=== PATIENT | female | born 1945 | race Caucasian/White ===

== ENCOUNTER 2025-05-04 11:19 | Emergency (ER) | payer MEDICARE, MEDICAID ==
[~2025-05-04] VITALS: Ht 167.6 cm; Wt 82.3 kg
[2025-05-04] MEDS: ACETAMINOPHEN 325 MG TAB PO ONE (12:01)
[2025-05-04 13:22] VITALS: BP 133/93; TEMP 98; O2SAT 99
== END 2025-05-04 13:23 | disposition home or self-care (01) ==
LOC: EDBD 11:19 → M ED 11:19
DX: S80.01XA Contusion of right knee, initial encounter (principal); S42.291A Other displaced fracture of upper end of right humerus, initial encounter for closed fracture; W01.198A Fall on same level from slipping, tripping and stumbling with subsequent striking against other object, initial encounter; M17.11 Unilateral primary osteoarthritis, right knee; Y92.410 Unspecified street and highway as the place of occurrence of the external cause; Y93.89 Activity, other specified; Y99.9 Unspecified external cause status

== ENCOUNTER 2025-05-06 21:31 | Inpatient (IN) | payer MEDICARE, MEDICAID ==
[2025-05-07 00:18] LABS: BASO # 0.1 10^3/uL (0.0-0.2); BASO % 0.3 % (0.0-1.0); EOS # 0.0 10^3/uL (0.0-0.5); EOS % 0.0 % (0.0-3.0); LYMPH # 1.1 10^3/uL (1.5-5.0); LYMPH % 6.6 % (24.0-44.0); MONO # 1.4 10^3/uL (0.0-0.8); MONO % 8.4 % (2.0-8.0); NEUTROPHILS # 13.6 10^3/uL (1.5-8.5); NEUTROPHILS % 84.2 % (36.0-66.0); PLATELET COUNT, AUTOMATED 184 10^3/uL (150-450)
[2025-05-07 00:40] LABS: ALT/SGPT 29.0 U/L (7.0-40); AST/SGOT 71.0 U/L (<34); CALCIUM LEVEL 9.7 MG/DL (8.3-10.6); CARBON DIOXIDE LEVEL 20.0 MMOL/L (20-31); CHLORIDE LEVEL 107.0 MMOL/L (98-107); CREATININE FOR GFR 0.82 MG/DL (0.55-1.30); GLOMERULAR FILTRATION RATE 73.2 (>39); POTASSIUM SERUM 5.2 MMOL/L (3.5-5.1); SODIUM LEVEL 144.0 MMOL/L (136-145)
[2025-05-07 00:42] LABS: FREE T4 1.37 NG/DL (0.89-1.76)
[2025-05-07 00:45] LABS: CPK CREATINE PHOSPHOKINASE 1277.0 U/L (34-145)
[2025-05-07] MEDS: METOPROLOL 5 MG/5 ML VIAL IV SCH (00:52)
[2025-05-07 01:35] LABS: CK-MB VALUE MASS 17.7 NG/ML (<3.6)
[2025-05-07 01:37] LABS: CPK CREATINE PHOSPHOKINASE 1242.0 U/L (34-145); MB/CK RELATIVE INDEX 1.42 (< OR =4)
[2025-05-07] MEDS ORDERED: NS (Normal Saline) 0.9% 1,000 ML IV ONE (02:05)
[2025-05-07 02:44] LABS: VENOUS BASE EXCESS -1.9 (-2.0-2.0); VENOUS HCO3 20.6 MMOL/L (23.0-27.0); VENOUS O2 SATURATION 98.9 % (60.0-80.0); VENOUS PARTIAL PRESSURE CO2 29.7 mmHg (38.0-50.0); VENOUS PARTIAL PRESSURE O2 133.8 mmHg (30.0-50.0); VENOUS PH 7.458 UNITS (7.330-7.430); VENOUS STANDARD HCO3 22.9 MMOL/L; VENOUS TOTAL CO2 21.5 MMOL/L (24.0-28.0)
[2025-05-07] MEDS ORDERED: ISOVUE-370 76% 100 ML VIAL As Ordered ONE (03:03)
[2025-05-07] MEDS: NS (Normal Saline) 0.9% 1,000 ML IV ONE (03:35)
[2025-05-07] MEDS: ALBUTEROL SULFATE 2.5 MG/0.5 ML INH CONCENTRATE NEB SOLN NEB ONE ×2 (03:50→03:54)
[2025-05-07 04:17] LABS: ABG BASE EXCESS -1.7 (-2.0-2.0); ABG HCO3 22.2 MMOL/L (22.0-26.0); ABG O2 SATURATION 91.6 % (95.0-99.0); ABG PARTIAL PRESSURE CO2 35.2 mmHg (35.0-45.0); ABG PARTIAL PRESSURE O2 60.0 mmHg (75.0-100.0); ABG STANDARD HCO3 22.9 MMOL/L. (22.0-26.0); ABG TOTAL CO2 23.2 MMOL/L (23.0-31.0); ABG pH (ARTERIAL) 7.417 UNITS (7.350-7.450)
[2025-05-07] MEDS ORDERED: GLUCAGON INJ 1 MG VIAL SC PRN ×2 (08:30→19:10)
[2025-05-07] MEDS ORDERED: DEXTROSE 50% 50 ML SYRINGE IV PRN ×2 (08:30→19:10)
[2025-05-07] MEDS ORDERED: GLUCOSE 4 GM CHEW PO PRN ×2 (08:30→19:10)
[2025-05-07 08:54] LABS: BASO # 0.0 10^3/uL (0.0-0.2); BASO % 0.2 % (0.0-1.0); EOS # 0.0 10^3/uL (0.0-0.5); EOS % 0.0 % (0.0-3.0); LYMPH # 1.1 10^3/uL (1.5-5.0); LYMPH % 6.8 % (24.0-44.0); MONO # 1.0 10^3/uL (0.0-0.8); MONO % 6.4 % (2.0-8.0); NEUTROPHILS # 13.6 10^3/uL (1.5-8.5); NEUTROPHILS % 86.0 % (36.0-66.0); PLATELET COUNT, AUTOMATED 175 10^3/uL (150-450)
[2025-05-07 08:58] LABS: ERYTHROCYTE SEDIMENTATION RATE 8 mm/hr (0-30)
[2025-05-07] MEDS: LR 1,000 ML IV ONE ×2 (09:03→10:22)
[2025-05-07] MEDS: CEFEPIME HCL 2 GM in DEXTROSE 5% (D5W) ADV/MINI-BAG 50 ML IV ONE (09:03)
[2025-05-07] MEDS ORDERED: IPRATROPIUM 0.5 MG/ALBUTEROL 2.5 MG INH SOL UD 3 ML NEB PRN (09:10)
[2025-05-07 09:18] LABS: CK-MB VALUE MASS 13.3 NG/ML (<3.6)
[2025-05-07 09:19] LABS: C REACTIVE PROTEIN QUANTITATIV 8.39 MG/DL (<1.0); CPK CREATINE PHOSPHOKINASE 835.0 U/L (34-145); MB/CK RELATIVE INDEX 1.59 (< OR =4)
[2025-05-07 09:23] LABS: PROLACTIN 5.57 NG/ML
[2025-05-07 09:24] LABS: ALT/SGPT 29.0 U/L (7.0-40); AST/SGOT 55.0 U/L (<34); CALCIUM LEVEL 8.8 MG/DL (8.3-10.6); CARBON DIOXIDE LEVEL 25.0 MMOL/L (20-31); CHLORIDE LEVEL 110.0 MMOL/L (98-107); CHOLESTEROL LEVEL 208.0 MG/DL (<200); CHOLESTEROL RISK RATIO 4.48 (<5); CREATININE FOR GFR 0.81 MG/DL (0.55-1.30); GLOMERULAR FILTRATION RATE 74.3 (>39); LDL CHOLESTEROL 129.4 MG/DL (<100); NON-HDL-C 161.6 MG/DL; POTASSIUM SERUM 4.6 MMOL/L (3.5-5.1); SODIUM LEVEL 146.0 MMOL/L (136-145); TRIGLYCERIDES LEVEL 161.0 MG/DL (<150)
[2025-05-07 09:36] LABS: ESTIMATED AVERAGE GLUCOSE 154.0 MG/DL (60-110)
[2025-05-07] MEDS: levETIRAcetam INJection 1,000 MG in IV 1 EA IV SCH (10:22)
[2025-05-07] MEDS ORDERED: HOME MED LIST COMPLETE! XX SCH (10:35)
[2025-05-07] MEDS: LR 1,000 ML IV SCH (11:26)
[2025-05-07] MEDS: ENOXAPARIN 40 MG/0.4 ML SYRINGE (J1650 PER 10MG) SC SCH (11:33)
[2025-05-07] MEDS: IPRATROPIUM 0.5 MG/ALBUTEROL 2.5 MG INH SOL UD 3 ML NEB SCH (11:51)
[2025-05-07 15:54] VITALS: O2SAT 94
[2025-05-07] MEDS: PIPERACILLIN/TAZOBACTAM SOD 3.375 GM in DEXTROSE 5% (D5W) ADV/MINI-BAG 50 ML IV SCH (17:09)
[2025-05-07 18:21] VITALS: BP 148/71; TEMP 98.2; O2SAT 92
[2025-05-07 18:51] LABS: CK-MB VALUE MASS 10.8 NG/ML (<3.6)
[2025-05-07 18:53] LABS: CPK CREATINE PHOSPHOKINASE 608.0 U/L (34-145); MB/CK RELATIVE INDEX 1.77 (< OR =4)
[2025-05-07] MEDS ORDERED: NITROGLYCERIN 0.4 MG SUBL TABLET SL PRN (19:05)
[2025-05-07 19:24] LABS: MYOGLOBIN 346.0 NG/ML (<110)
[2025-05-07 19:52] VITALS: BP 153/76; TEMP 97.2; O2SAT 94
[2025-05-07] MEDS: INSULIN LISPRO (NovoLOG) PER UNIT SC SCH (20:20)
[2025-05-07] MEDS: ATORVASTATIN 20 MG TAB PO SCH (20:30)
[2025-05-07] MEDS: ASPIRIN 81 MG CHEWABLE TABLET PO ONE (20:30)
[2025-05-07] MEDS ORDERED: PILL CUTTER 1 EACH XX ONE (20:32)
[2025-05-07 20:50] VITALS: BP 150/102; TEMP 97; O2SAT 96
[2025-05-07 23:00] VITALS: O2SAT 95
[2025-05-07 23:50] VITALS: BP 105/56; TEMP 97; O2SAT 93
[2025-05-08] VITALS (34 sets, daily range): BP systolic 90–147; BP diastolic 50–71; TEMP 97.1–98.6; O2SAT 87–98
[2025-05-08 03:45] LABS: KETONE, URINE AUTO RFX TRACE mg/dL (NEGATIVE); LEUKOCYTE ESTERASE UR AUTO RFX NEGATIVE (NEGATIVE); MUCUS, URINE RFX SMALL (NEGATIVE); NITRITE, URINE AUTO RFX NEGATIVE (NEGATIVE); RBC, URINE AUTO RFX 0 /HPF (0-3); SQUAM EPITHELIAL CELL UR AURFX 0 /HPF (0-6); WBC, URINE AUTO RFX 1 /HPF (0-3)
[2025-05-08 05:55] LABS: BASO # 0.1 10^3/uL (0.0-0.2); BASO % 0.6 % (0.0-1.0); EOS # 0.3 10^3/uL (0.0-0.5); EOS % 3.1 % (0.0-3.0); LYMPH # 1.9 10^3/uL (1.5-5.0); LYMPH % 20.0 % (24.0-44.0); MONO # 0.9 10^3/uL (0.0-0.8); MONO % 9.2 % (2.0-8.0); NEUTROPHILS # 6.3 10^3/uL (1.5-8.5); NEUTROPHILS % 66.5 % (36.0-66.0); PLATELET COUNT, AUTOMATED 157 10^3/uL (150-450)
[2025-05-08 06:14] LABS: CK-MB VALUE MASS 6.1 NG/ML (<3.6)
[2025-05-08 06:15] LABS: CPK CREATINE PHOSPHOKINASE 404.0 U/L (34-145); MB/CK RELATIVE INDEX 1.5 (< OR =4)
[2025-05-08 06:16] LABS: CALCIUM LEVEL 8.4 MG/DL (8.3-10.6); CARBON DIOXIDE LEVEL 28.0 MMOL/L (20-31); CHLORIDE LEVEL 107.0 MMOL/L (98-107); CREATININE FOR GFR 0.84 MG/DL (0.55-1.30); GLOMERULAR FILTRATION RATE 71.1 (>39); POTASSIUM SERUM 4.0 MMOL/L (3.5-5.1); SODIUM LEVEL 144.0 MMOL/L (136-145)
[2025-05-08] MEDS: METOPROLOL 5 MG/5 ML VIAL IV SCH (08:00)
[2025-05-08] MEDS: DIGOXIN INJ 0.5 MG/2 ML AMP IV STA (08:08)
[2025-05-08] MEDS: ASPIRIN 81 MG CHEWABLE TABLET PO SCH (09:21)
[2025-05-08] MEDS: APIXABAN 5 MG TAB PO SCH (09:24)
[2025-05-08] MEDS: MIDODRINE 5 MG TAB PO ONE (09:25)
[2025-05-08] MEDS: INSULIN LISPRO (NovoLOG) PER UNIT SC SCH (09:28)
[2025-05-08] MEDS ORDERED: PERCOCET 5MG/325MG TAB PO PRN (11:30)
[2025-05-08] MEDS ORDERED: METOPROLOL TART 25 MG TABLET PO SCH (12:00)
[2025-05-08] MEDS: PERCOCET 5MG/325MG TAB PO ONE (12:32)
[2025-05-09] VITALS (26 sets, daily range): BP systolic 121–148; BP diastolic 58–84; TEMP 97.2–98.2; O2SAT 75–97
[2025-05-09] MEDS: PERCOCET 5MG/325MG TAB PO PRN (05:29)
[2025-05-09 06:42] LABS: BASO # 0.1 10^3/uL (0.0-0.2); BASO % 0.6 % (0.0-1.0); EOS # 0.5 10^3/uL (0.0-0.5); EOS % 6.6 % (0.0-3.0); LYMPH # 1.6 10^3/uL (1.5-5.0); LYMPH % 20.2 % (24.0-44.0); MONO # 0.6 10^3/uL (0.0-0.8); MONO % 7.9 % (2.0-8.0); NEUTROPHILS # 5.1 10^3/uL (1.5-8.5); NEUTROPHILS % 63.8 % (36.0-66.0); PLATELET COUNT, AUTOMATED 150 10^3/uL (150-450)
[2025-05-09 07:03] LABS: CALCIUM LEVEL 8.4 MG/DL (8.3-10.6); CARBON DIOXIDE LEVEL 26.0 MMOL/L (20-31); CHLORIDE LEVEL 103.0 MMOL/L (98-107); CREATININE FOR GFR 0.72 MG/DL (0.55-1.30); GLOMERULAR FILTRATION RATE 85.5 (>39); POTASSIUM SERUM 4.4 MMOL/L (3.5-5.1); SODIUM LEVEL 141.0 MMOL/L (136-145)
[2025-05-09 07:54] LABS: CK-MB VALUE MASS 3.3 NG/ML (<3.6)
[2025-05-09] MEDS: amLODIPine 10 MG TAB PO SCH (07:59)
[2025-05-09 08:05] LABS: CPK CREATINE PHOSPHOKINASE 240.0 U/L (34-145); MB/CK RELATIVE INDEX 1.37 (< OR =4)
[2025-05-10] VITALS (12 sets, daily range): BP systolic 145–150; BP diastolic 77–100; TEMP 97.5–98.6; O2SAT 70–94
[2025-05-10 07:25] LABS: BASO # 0.1 10^3/uL (0.0-0.2); BASO % 0.7 % (0.0-1.0); EOS # 0.7 10^3/uL (0.0-0.5); EOS % 9.2 % (0.0-3.0); LYMPH # 1.0 10^3/uL (1.5-5.0); LYMPH % 13.7 % (24.0-44.0); MONO # 0.6 10^3/uL (0.0-0.8); MONO % 8.6 % (2.0-8.0); NEUTROPHILS # 4.9 10^3/uL (1.5-8.5); NEUTROPHILS % 67.0 % (36.0-66.0); PLATELET COUNT, AUTOMATED 157 10^3/uL (150-450)
[2025-05-10 08:03] LABS: CALCIUM LEVEL 8.2 MG/DL (8.3-10.6); CARBON DIOXIDE LEVEL 26 MMOL/L (20-31); CHLORIDE LEVEL 104 MMOL/L (98-107); CREATININE FOR GFR 0.64 MG/DL (0.55-1.30); GLOMERULAR FILTRATION RATE > 90.0 (>39); POTASSIUM SERUM 4.0 MMOL/L (3.5-5.1); SODIUM LEVEL 141 MMOL/L (136-145)
[2025-05-10] MEDS: traZODone 25MG PER 1/2 TABLET PO ONE (22:26)
[2025-05-10 23:45] LABS: KETONE, URINE AUTO RFX TRACE mg/dL (NEGATIVE); LEUKOCYTE ESTERASE UR AUTO RFX NEGATIVE (NEGATIVE); MUCUS, URINE RFX SMALL (NEGATIVE); NITRITE, URINE AUTO RFX NEGATIVE (NEGATIVE); RBC, URINE AUTO RFX 1 /HPF (0-3); SQUAM EPITHELIAL CELL UR AURFX 0 /HPF (0-6); WBC, URINE AUTO RFX 0 /HPF (0-3)
[2025-05-11] VITALS (7 sets, daily range): BP systolic 111–156; BP diastolic 60–89; TEMP 97.9–98.1; O2SAT 91–94
[2025-05-11 06:07] LABS: BASO # 0.0 10^3/uL (0.0-0.2); BASO % 0.4 % (0.0-1.0); EOS # 0.7 10^3/uL (0.0-0.5); EOS % 9.1 % (0.0-3.0); LYMPH # 1.1 10^3/uL (1.5-5.0); LYMPH % 14.1 % (24.0-44.0); MONO # 0.7 10^3/uL (0.0-0.8); MONO % 9.0 % (2.0-8.0); NEUTROPHILS # 5.0 10^3/uL (1.5-8.5); NEUTROPHILS % 66.5 % (36.0-66.0); PLATELET COUNT, AUTOMATED 192 10^3/uL (150-450)
[2025-05-11 06:36] LABS: CALCIUM LEVEL 8.6 MG/DL (8.3-10.6); CARBON DIOXIDE LEVEL 28 MMOL/L (20-31); CHLORIDE LEVEL 104 MMOL/L (98-107); CREATININE FOR GFR 0.65 MG/DL (0.55-1.30); GLOMERULAR FILTRATION RATE > 90.0 (>39); POTASSIUM SERUM 3.7 MMOL/L (3.5-5.1); SODIUM LEVEL 144 MMOL/L (136-145)
[2025-05-11 09:37] LABS: URINE STREP PNEUMONIAE ANTIGEN Not Detected (Not Detected)
[2025-05-11] MEDS ORDERED: ELIQ5TAB PO (13:53)
[2025-05-11] MEDS ORDERED: AMOX875T2 PO (13:53)
[2025-05-11] MEDS ORDERED: IPRA0.00 NEB (13:53)
[2025-05-11] MEDS ORDERED: KEPP250T5 PO (13:53)
[2025-05-11] MEDS ORDERED: CARV12.5 PO (13:53)
[2025-05-11] MEDS ORDERED: ASPI81CH8 PO (13:53)
[2025-05-11] MEDS ORDERED: ATOR1TAB21 PO (13:53)
[2025-05-11] MEDS ORDERED: AMLO1TAB25 PO (13:53)
[2025-05-11] MEDS ORDERED: AUGMENTIN 875 MG TAB PO SCH (18:00)
[2025-05-11 22:36] LABS: MYCOPLASMA PNEUMONIAE IGG 2.99 (<=0.90); MYCOPLASMA PNEUMONIAE IGM 90.0 U/mL (<770)
== END 2025-05-11 15:10 | DRG 100 ==
LOC: M ED 21:31 → M ED INP 05-07 08:22 → M PCU 05-07 18:02 → M MSPAV 05-09 18:16
PROVIDERS: ADMIT General Practice; ATTEND Student in an Organized Health Care Education/Training Program
DX: R56.9 Unspecified convulsions (principal); J96.01 Acute respiratory failure with hypoxia; J69.0 Pneumonitis due to inhalation of food and vomit; I21.A1 Myocardial infarction type 2; G93.41 Metabolic encephalopathy; M62.82 Rhabdomyolysis; S22.43XA Multiple fractures of ribs, bilateral, initial encounter for closed fracture; S42.201A Unspecified fracture of upper end of right humerus, initial encounter for closed fracture; J98.11 Atelectasis; E87.20 Acidosis, unspecified; I48.0 Paroxysmal atrial fibrillation; E11.9 Type 2 diabetes mellitus without complications; W18.30XA Fall on same level, unspecified, initial encounter; Y92.238 Other place in hospital as the place of occurrence of the external cause; R29.6 Repeated falls; M17.11 Unilateral primary osteoarthritis, right knee; M50.321 Other cervical disc degeneration at C4-C5 level; M50.322 Other cervical disc degeneration at C5-C6 level; R26.89 Other abnormalities of gait and mobility; D72.829 Elevated white blood cell count, unspecified; E86.0 Dehydration; E87.5 Hyperkalemia; E78.5 Hyperlipidemia, unspecified

== ENCOUNTER 2025-05-11 14:32 | Inpatient (IN) | payer MEDICARE, MEDICAID ==
[~2025-05-11] VITALS: Ht 167.6 cm; Wt 77.0 kg
[~2025-05-11 14:32] MED LIST: AMLO1TAB25 PO; AMOX875T2 PO; ASPI81CH8 PO; ATOR1TAB21 PO; CARV12.5 PO; ELIQ5TAB PO; IPRA0.00 NEB; KEPP250T5 PO
[2025-05-11] MEDS ORDERED: MOM 30 ML SUSPENSION UDC PO PRN (14:40)
[2025-05-11] MEDS ORDERED: BISACODYL 10 MG SUPP PR PRN (14:40)
[2025-05-11] MEDS ORDERED: GLUCOSE 4 GM CHEW PO PRN (14:40)
[2025-05-11] MEDS ORDERED: NITROGLYCERIN 0.4 MG SUBL TABLET SL PRN (14:40)
[2025-05-11] MEDS ORDERED: ONDANSETRON 4MG ORAL DISINTEGRATING TAB PO PRN (14:40)
[2025-05-11] MEDS ORDERED: BISACODYL 5 MG TAB PO PRN (14:40)
[2025-05-11] MEDS ORDERED: ALBUTEROL SULFATE 2.5 MG/0.5 ML INH CONCENTRATE NEB SOLN NEB PRN (14:40)
[2025-05-11] MEDS ORDERED: GLUCAGON INJ 1 MG VIAL SC PRN (14:40)
[2025-05-11] MEDS ORDERED: DEXTROSE 50% 50 ML SYRINGE IV PRN (14:40)
[2025-05-11] MEDS ORDERED: SIMETHICONE 80MG CHEW TAB PO PRN (14:40)
[2025-05-11 15:10] VITALS: BP 140/67; TEMP 97.3; O2SAT 91
[2025-05-11] MEDS: LIDOCAINE 5% PATCH TD SCH ×2 (17:10→17:11)
[2025-05-11] MEDS: INSULIN LISPRO (NovoLOG) PER UNIT SC SCH ×2 (17:12→20:32)
[2025-05-11] MEDS: ACETAMINOPHEN 500 MG TAB PO SCH (17:12)
[2025-05-11 20:00] VITALS: BP 136/73; TEMP 98.2; O2SAT 93
[2025-05-11] MEDS: COMBIVENT RESPIMAT 100-20 MCG INHALER 4 GM INH SCH (20:38)
[2025-05-11] MEDS: AUGMENTIN 875 MG TAB PO SCH (20:58)
[2025-05-11] MEDS: RAMELTEON 8 MG TAB PO PRN (20:58)
[2025-05-11] MEDS: PANTOPRAZOLE 40MG TAB PO SCH (21:00)
[2025-05-11] MEDS: ATORVASTATIN 20 MG TAB PO SCH (21:00)
[2025-05-11] MEDS: SENNOSIDES/DOCUSATE SODIUM 8.6 MG/50MG TAB PO SCH (21:00)
[2025-05-11] MEDS: APIXABAN 5 MG TAB PO SCH (21:01)
[2025-05-12] VITALS (7 sets, daily range): BP systolic 135–181; BP diastolic 76–82; TEMP 97–97.5; O2SAT 91–98
[2025-05-12] MEDS ORDERED: HOME MED LIST COMPLETE! XX SCH (07:50)
[2025-05-12 07:53] LABS: BASO # 0.1 10^3/uL (0.0-0.2); BASO % 0.6 % (0.0-1.0); EOS # 0.9 10^3/uL (0.0-0.5); EOS % 10.4 % (0.0-3.0); LYMPH # 1.6 10^3/uL (1.5-5.0); LYMPH % 18.8 % (24.0-44.0); MONO # 0.7 10^3/uL (0.0-0.8); MONO % 8.6 % (2.0-8.0); NEUTROPHILS # 5.0 10^3/uL (1.5-8.5); NEUTROPHILS % 60.6 % (36.0-66.0); PLATELET COUNT, AUTOMATED 210 10^3/uL (150-450)
[2025-05-12 08:32] LABS: ALT/SGPT 28.0 U/L (7.0-40); AST/SGOT 30.0 U/L (<34); CALCIUM LEVEL 8.8 MG/DL (8.3-10.6); CARBON DIOXIDE LEVEL 28.0 MMOL/L (20-31); CHLORIDE LEVEL 105.0 MMOL/L (98-107); CREATININE FOR GFR 0.68 MG/DL (0.55-1.30); GLOMERULAR FILTRATION RATE 89.1 (>39); POTASSIUM SERUM 4.1 MMOL/L (3.5-5.1); SODIUM LEVEL 143.0 MMOL/L (136-145)
[2025-05-12] MEDS: ASPIRIN 81 MG ENTERIC TABLET PO SCH (08:34)
[2025-05-12] MEDS: amLODIPine 10 MG TAB PO SCH (08:34)
[2025-05-12] MEDS ORDERED: LIDOCAINE 5% PATCH TD SCH (09:00)
[2025-05-13 04:00] VITALS: BP 137/75; TEMP 97.1; O2SAT 93
[2025-05-13 08:25] VITALS: O2SAT 98
[2025-05-13 08:26] VITALS: BP 132/64
[2025-05-13 08:31] VITALS: O2SAT 94
[2025-05-13 12:00] VITALS: BP 121/66; TEMP 97.3; O2SAT 95
[2025-05-13 20:00] VITALS: BP 154/78; TEMP 97.5; O2SAT 92
[2025-05-14 04:00] VITALS: BP 142/69; TEMP 97.4; O2SAT 92
[2025-05-14 12:00] VITALS: BP 121/67; TEMP 97.1; O2SAT 91
[2025-05-14 20:00] VITALS: BP 144/71; TEMP 97.1; O2SAT 95
[2025-05-15 04:00] VITALS: BP 111/68; TEMP 96.8; O2SAT 94
[2025-05-15 12:00] VITALS: BP 129/57; TEMP 97.1; O2SAT 94
[2025-05-15 20:02] VITALS: BP 138/67; TEMP 97.3; O2SAT 94
[2025-05-16 04:00] VITALS: BP 135/68; TEMP 97.6; O2SAT 96
[2025-05-16 07:26] VITALS: BP 116/67; O2SAT 97
[2025-05-16 10:29] LABS: BASO # 0.1 10^3/uL (0.0-0.2); BASO % 0.6 % (0.0-1.0); EOS # 0.6 10^3/uL (0.0-0.5); EOS % 5.6 % (0.0-3.0); LYMPH # 1.1 10^3/uL (1.5-5.0); LYMPH % 11.2 % (24.0-44.0); MONO # 0.8 10^3/uL (0.0-0.8); MONO % 7.8 % (2.0-8.0); NEUTROPHILS # 7.3 10^3/uL (1.5-8.5); NEUTROPHILS % 73.9 % (36.0-66.0); PLATELET COUNT, AUTOMATED 342 10^3/uL (150-450)
[2025-05-16 10:54] LABS: CALCIUM LEVEL 9.4 MG/DL (8.3-10.6); CARBON DIOXIDE LEVEL 28.0 MMOL/L (20-31); CHLORIDE LEVEL 104.0 MMOL/L (98-107); CREATININE FOR GFR 0.76 MG/DL (0.55-1.30); GLOMERULAR FILTRATION RATE 80.2 (>39); POTASSIUM SERUM 4.4 MMOL/L (3.5-5.1); SODIUM LEVEL 143.0 MMOL/L (136-145)
[2025-05-16 12:00] VITALS: BP 132/65; TEMP 97.9; O2SAT 96
[2025-05-16 20:00] VITALS: BP 150/73; TEMP 97.5; O2SAT 94
[2025-05-17 04:00] VITALS: BP 123/65; TEMP 97.5; O2SAT 94
[2025-05-17 12:00] VITALS: BP 119/56; TEMP 97.7; O2SAT 99
[2025-05-17 20:00] VITALS: BP 173/80; TEMP 97.3; O2SAT 92
[2025-05-18 04:00] VITALS: BP 114/64; TEMP 98.2; O2SAT 94
[2025-05-18 12:00] VITALS: BP 123/60; TEMP 97.5; O2SAT 95
[2025-05-18 20:00] VITALS: BP 159/76; TEMP 96.9; O2SAT 95
[2025-05-19 04:00] VITALS: BP 126/70; TEMP 97.7; O2SAT 96
[2025-05-19 12:00] VITALS: BP 119/75; TEMP 97.6; O2SAT 96
[2025-05-19 20:00] VITALS: BP 128/64; TEMP 97.6; O2SAT 96
[2025-05-20 04:00] VITALS: BP 133/64; TEMP 97.5; O2SAT 95
[2025-05-20 12:14] VITALS: BP 136/71; TEMP 97.2; O2SAT 98
[2025-05-20 19:49] VITALS: BP 141/68; TEMP 97.8; O2SAT 94
[2025-05-21 04:10] VITALS: BP 153/80; TEMP 99; O2SAT 94
[2025-05-21 11:44] VITALS: BP 126/64; TEMP 97.7; O2SAT 95
[2025-05-21 19:29] VITALS: BP 127/74; TEMP 96.7; O2SAT 96
[2025-05-22 04:00] VITALS: BP 158/81; TEMP 97.4; O2SAT 97
[2025-05-22 11:31] VITALS: BP 139/77; TEMP 97; O2SAT 98
[2025-05-22 19:36] VITALS: BP 150/76; TEMP 97.6; O2SAT 97
[2025-05-22] MEDS ORDERED: ACET-683 PO (20:22)
[2025-05-22] MEDS ORDERED: LIDO5TD TD (20:22)
[2025-05-22] MEDS ORDERED: OXYC-517 PO (20:22)
[2025-05-22] MEDS ORDERED: AMLO1TAB25 PO (20:22)
[2025-05-22] MEDS ORDERED: PANT40TA29 PO (20:22)
[2025-05-22] MEDS ORDERED: ELIQ5TAB PO (20:22)
[2025-05-23 05:11] VITALS: BP 145/75; TEMP 97.9; O2SAT 96
[2025-05-23 07:53] VITALS: BP 126/72
[2025-06-01] MEDS ORDERED: ATOR1TAB21 PO (11:22)
[2025-06-01] MEDS ORDERED: KEPP250T5 PO (11:22)
[2025-06-01] MEDS ORDERED: ASPI81CH8 PO (11:22)
[2025-06-01] MEDS ORDERED: CARV12.5 PO (11:22)
== END 2025-05-23 11:05 | disposition home health service (06) | DRG 561 ==
LOC: M PM&R 15:10
PROVIDERS: ADMIT Physical Medicine & Rehabilitation; ATTEND Physical Medicine & Rehabilitation
DX: S42.201D Unspecified fracture of upper end of right humerus, subsequent encounter for fracture with routine healing (principal); S22.43XD Multiple fractures of ribs, bilateral, subsequent encounter for fracture with routine healing; R56.9 Unspecified convulsions; F09 Unspecified mental disorder due to known physiological condition; I48.91 Unspecified atrial fibrillation; R29.6 Repeated falls; E11.65 Type 2 diabetes mellitus with hyperglycemia; I25.10 Atherosclerotic heart disease of native coronary artery without angina pectoris; Z79.01 Long term (current) use of anticoagulants; Z79.899 Other long term (current) drug therapy; Z79.82 Long term (current) use of aspirin; W18.30XD Fall on same level, unspecified, subsequent encounter; G47.00 Insomnia, unspecified

== ENCOUNTER → 2025-06-08 | Outpatient (CLI) | payer MEDICARE, MEDICAID ==
[~2025-06-08] MED LIST changes: +ACET-683 PO; +LIDO5TD TD; +OXYC-517 PO; +PANT40TA29 PO
== END ==
LOC: M SOG 07:37
PROVIDERS: ATTEND Physician Assistant
DX: S42.91XD Fracture of right shoulder girdle, part unspecified, subsequent encounter for fracture with routine healing (principal); X58.XXXD Exposure to other specified factors, subsequent encounter; Y92.9 Unspecified place or not applicable; Y93.9 Activity, unspecified; Y99.9 Unspecified external cause status

== ENCOUNTER → 2025-07-11 | Outpatient (CLI) | payer MEDICARE, MEDICAID | LOC: M SOG 07-08 13:49 | PROVIDERS: ATTEND Physician Assistant | DX: S42.254A Nondisplaced fracture of greater tuberosity of right humerus, initial encounter for closed fracture (principal); W18.30XA Fall on same level, unspecified, initial encounter; Y92.009 Unspecified place in unspecified non-institutional (private) residence as the place of occurrence of the external cause ==